=== PATIENT | male | born 1980 | race African-American/Black ===

== ENCOUNTER 2022-09-30 20:24 | Emergency (ER) | payer OTHER, SELFPAY ==
[2022-09-30 20:27] VITALS: BP 119/81; PULSE 73; RESP 18; TEMP 36.7; O2SAT 99; BMI 23.6
--- NOTE | 2022-09-30 20:29 | ED.ABDPAIN ---
HPI - Abdominal Pain General Chief Complaint: Nausea/Vomiting/Diarrhea <TIM Dailey - Last Filed: 09/30/22 20:32> Stated Complaint: Nausea/Vomiting/Diarrhea <TIM Dailey - Last Filed: 09/30/22 20:32> Time Seen by Provider: 09/30/22 21:14 <TIM Dailey - Last Filed: 09/30/22 20:32> Source: patient <Anton Piedra MD - Last Filed: 09/30/22 22:06> Mode of arrival: ambulatory <Anton Piedra MD - Last Filed: 09/30/22 22:06> Limitations: no limitations <Anton Piedra MD - Last Filed: 09/30/22 22:06> History of Present Illness HPI narrative: Patient with nausea diarrhea headache feeling weak poor appetite for last 2 days also noticed urine dark in color patient diagnosed with hepatitis-C planned to have treatment started next month no significant abdominal pain had only nausea today and vomited only 1 time no nausea at this time no upper respiratory symptoms <Anton Piedra MD - Last Filed: 09/30/22 22:06> Related Data Home Medications: Previous Rx's Medication Instructions Recorded ibuprofen 600 mg tablet 600 mg PO Q6H PRN fever or pain 09/30/22 #30 tabs <TIM Dailey - Last Filed: 09/30/22 20:32> Allergies/Adverse Reactions: Allergies Allergy/AdvReac Type Severity Reaction Status Date / Time No Known Allergies Allergy Verified 09/30/22 20:29 <TIM Dailey - Last Filed: 09/30/22 20:32> Review of Systems Review of Systems Yes all other systems are reviewed and are negative <Anton Piedra MD - Last Filed: 09/30/22 22:06> COUNT INCLUDES THE [facility] Social History Social History: Social History Advance Directives: No Advance Directives Information Provided: No <TIM Dailey Last Filed: 09/30/22 20:32> Physical Exam ED Vital Signs: Vital Signs - 24 hr 09/30/22 20:27 Temperature 98.0 F Pulse Rate 73 Respiratory Rate 18 Blood Pressure 119/81 Pulse Oximetry 99 Oxygen Delivery Method Room Air BMI result Body Mass Index 23.6 <TIM Dailey - Last Filed: 09/30/22 20:32> Vital Signs - 24 hr 09/30/22 20:27 Temperature 98.0 F Pulse Rate 73 Respiratory Rate 18 Blood Pressure 119/81 Pulse Oximetry 99 Oxygen Delivery Method Room Air BMI result Body Mass Index 23.6 <Anton Piedra MD - Last Filed: 09/30/22 22:06> Appearance: Alert. Oriented X3. No acute distress. Eyes: PERRLA, No Nystagmus ENT: Pharynx normal. Oral Mucosa moist Neck: Normal inspection. Neck supple. CVS: Normal heart rate and rhythm. Pulses normal. Respiratory: No respiratory distress. Equal air entry bilateral, no wheezing/rales/rhonchi Abdomen: Soft and nontender. Bowel sounds are present, no mass palpable, no CVA tenderness Skin: Skin warm and dry. Normal skin color. Normal skin turgor. Extremities: No lower extremity edema. No calf tenderness Neuro: Oriented X 3. No motor deficit. No sensory deficit.No cerebellar signs , cranial nerves II-XII intact <Anton Piedra MD - Last Filed: 09/30/22 22:06> Course Course Course Narrative: HYUN-20:30pm - 42yoM who is French-speaking presenting to the ED c c/o of headaches, N/V/D that started today. Reports that he feels dehydrated. Reports his urine is darker almost orange in color. 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 Plan: Will order labs, UA, COVID/RSV/flu swab. Patient will then be sent to the waiting room for further evaluation treatment to the main ER. <TIM Dailey - Last Filed: 09/30/22 20:32> Medical Decision Making Medical Decision Making [facility] Narrative: Patient hepatitis-C multiple complaints no significant abdominal pain bilirubin levels normal patient planned to get the hepatitis C treatment next month will discharge patient home <Anton Piedra MD - Last Filed: 09/30/22 22:06> Lab Data [facility] Lab Attestation statement: I reviewed the patient's lab results. <Anton Piedra MD - Last Filed: 12/15/22 22:06> Result Diagrams: : 12/15/22 20:42 09/30/22 20:42 <TIM Dailey - Last Filed: 09/30/22 20:32> Labs: Lab Results 09/30/22 09/30/22 09/30/22 Range/Units 20:42 20:42 20:42 WBC 7.9 (4.8-10.8) X10*3/uL RBC 5.34 (4.60-5.80) X10*6/uL Hgb 14.6 (14.0-18.0) g/dl Hct 43.0 (42.0-52.0) % MCV 80.5 (80.0-98.0) fL MCH 27.3 (27.0-33.0) pg MCHC 34.0 (31.0-36.0) g/dl RDW 13.9 (11.0-16.0) % Plt Count 185 (160-400) X10*3/uL MPV 11.3 (9.4-12.4) fL Immature Gran % (Auto) 0.3 (0.0-0.4) % Neut % (Auto) 67.1 (45-73) % Lymph % (Auto) 24.5 (20-40) % [place] % (Auto) 7.2 (2-11) % Eos % (Auto) 0.6 (0-4) % Baso % (Auto) 0.3 (0-2) % Lymph # (Auto) 1.9 (1.2-4.9) X10*3/uL [place] # (Auto) 0.6 (0.1-1.2) X10*3/uL Eos # (Auto) 0.1 (0.0-0.4) X10*3/uL Baso # (Auto) 0.0 (0.0-0.2) X10*3/uL Abs Immat Gran (auto) 0.02 (0.00-0.03) X10*3/uL Absolute Neuts (auto) 5.3 (2.0-8.3) x10*3/uL Absolute Nucleated RBC 0.000 (0.0-0.012) X10*3/uL Nucleated RBC % (auto) 0.0 (0.0-0.2) /100WBC PT (10.0-13.1) SEC INR (0.9-1.1) Sodium 139 (135-145) mmol/L Potassium 3.9 (3.3-5.1) mmol/L Chloride 101 (96-108) mmol/L Carbon Dioxide 31 H (22-29) mmol/L Anion Gap 11 L (12-20) BUN 18 H (9-16) mg/dL Creatinine 0.85 (0.5-1.4) mg/dL Estim Creat Clear Calc 115.5 Estimated GFR > 60 Random Glucose 83 (60-115) mg/dL Calcium 9.7 (8.4-10.2) mg/dL Magnesium 1.7 (1.6-2.6) mg/dL Total Bilirubin 0.9 (0.0-1.0) mg/dL AST 102 H (5-37) U/L ALT 170 H (0-40) U/L Alkaline Phosphatase 103 (39-117) U/L Total Protein 8.1 H (6.5-8.0) g/dL Albumin 4.6 (3.5-5.0) g/dL Urine Color Urine Appearance Urine pH (5.0-9.0) Ur Specific [place] (1.005-1.025) Urine Protein (Neg-Trace) mg/dL Urine Glucose (UA) (Negative) mg/dL Urine Ketones (Negative) mg/dL Urine Blood (Negative) Urine Nitrite (Negative) Ur Leukocyte Esterase (Negative) Urine Opiates Screen (Not Detect) Urine Fentanyl Screen (Not Detect) Ur Barbiturates Screen (Not Detect) Ur Phencyclidine Scrn (Not Detect) Ur Amphetamines Screen (Not Detect) U Benzodiazepines Scrn (Not Detect) Urine Cocaine Screen (Not Detect) U Marijuana (THC) Screen (Not Detect) Ethyl Alcohol mg/dL Influenza Type A (PCR) NEGATIVE (Negative) Influenza Type B (PCR) NEGATIVE (Negative) RSV RNA Qual (PCR) NEGATIVE (Negative) SARS-CoV-2 RNA (RT-PCR) NEGATIVE (Negative) 09/30/22 09/30/22 09/30/22 Range/Units 20:42 20:42 21:27 WBC (4.8-10.8) X10*3/uL RBC (4.60-5.80) X10*6/uL Hgb (14.0-18.0) g/dl Hct (42.0-52.0) % MCV (80.0-98.0) fL MCH (27.0-33.0) pg MCHC (31.0-36.0) g/dl RDW (11.0-16.0) % Plt Count (160-400) X10*3/uL MPV (9.4-12.4) fL Immature Gran % (Auto) (0.0-0.4) % Neut % (Auto) (45-73) % Lymph % (Auto) (20-40) % [place] % (Auto) (2-11) % Eos % (Auto) (0-4) % Baso % (Auto) (0-2) % Lymph # (Auto) (1.2-4.9) X10*3/uL [place] # (Auto) (0.1-1.2) X10*3/uL Eos # (Auto) (0.0-0.4) X10*3/uL Baso # (Auto) (0.0-0.2) X10*3/uL Abs Immat Gran (auto) (0.00-0.03) X10*3/uL Absolute Neuts (auto) (2.0-8.3) x10*3/uL Absolute Nucleated RBC (0.0-0.012) X10*3/uL Nucleated RBC % (auto) (0.0-0.2) /100WBC PT 11.9 (10.0-13.1) SEC INR 1.0 (0.9-1.1) Sodium (135-145) mmol/L Potassium (3.3-5.1) mmol/L Chloride (96-108) mmol/L Carbon Dioxide (22-29) mmol/L Anion Gap (12-20) BUN (9-16) mg/dL Creatinine (0.5-1.4) mg/dL Estim Creat Clear Calc Estimated GFR Random Glucose (60-115) mg/dL Calcium (8.4-10.2) mg/dL Magnesium (1.6-2.6) mg/dL Total Bilirubin (0.0-1.0) mg/dL AST (5-37) U/L ALT (0-40) U/L Alkaline Phosphatase (39-117) U/L Total Protein (6.5-8.0) g/dL Albumin (3.5-5.0) g/dL Urine Color Urine Appearance Urine pH (5.0-9.0) Ur Specific [place] (1.005-1.025) Urine Protein (Neg-Trace) mg/dL Urine Glucose (UA) (Negative) mg/dL Urine Ketones (Negative) mg/dL Urine Blood (Negative) Urine Nitrite (Negative) Ur Leukocyte Esterase (Negative) Urine Opiates Screen POSITIVE H (Not Detect) Urine Fentanyl Screen POSITIVE H (Not Detect) Ur Barbiturates Screen Not Detected (Not Detect) Ur Phencyclidine Scrn Not Detected (Not Detect) Ur Amphetamines Screen Not Detected (Not Detect) U Benzodiazepines Scrn Not Detected (Not Detect) Urine Cocaine Screen POSITIVE H (Not Detect) U Marijuana (THC) Screen POSITIVE H (Not Detect) Ethyl Alcohol < 10 mg/dL Influenza Type A (PCR) (Negative) Influenza Type B (PCR) (Negative) RSV RNA Qual (PCR) (Negative) SARS-CoV-2 RNA (RT-PCR) (Negative) 09/30/22 Range/Units 21:27 WBC (4.8-10.8) X10*3/uL RBC (4.60-5.80) X10*6/uL Hgb (14.0-18.0) g/dl Hct (42.0-52.0) % MCV (80.0-98.0) fL MCH (27.0-33.0) pg MCHC (31.0-36.0) g/dl RDW (11.0-16.0) % Plt Count (160-400) X10*3/uL MPV (9.4-12.4) fL Immature Gran % (Auto) (0.0-0.4) % Neut % (Auto) (45-73) % Lymph % (Auto) (20-40) % [place] % (Auto) (2-11) % Eos % (Auto) (0-4) % Baso % (Auto) (0-2) % Lymph # (Auto) (1.2-4.9) X10*3/uL [place] # (Auto) (0.1-1.2) X10*3/uL Eos # (Auto) (0.0-0.4) X10*3/uL Baso # (Auto) (0.0-0.2) X10*3/uL Abs Immat Gran (auto) (0.00-0.03) X10*3/uL Absolute Neuts (auto) (2.0-8.3) x10*3/uL Absolute Nucleated RBC (0.0-0.012) X10*3/uL Nucleated RBC % (auto) (0.0-0.2) /100WBC PT (10.0-13.1) SEC INR (0.9-1.1) Sodium (135-145) mmol/L Potassium (3.3-5.1) mmol/L Chloride (96-108) mmol/L Carbon Dioxide (22-29) mmol/L Anion Gap (12-20) BUN (9-16) mg/dL Creatinine (0.5-1.4) mg/dL Estim Creat Clear Calc Estimated GFR Random Glucose (60-115) mg/dL Calcium (8.4-10.2) mg/dL Magnesium (1.6-2.6) mg/dL Total Bilirubin (0.0-1.0) mg/dL AST (5-37) U/L ALT (0-40) U/L Alkaline Phosphatase (39-117) U/L Total Protein (6.5-8.0) g/dL Albumin (3.5-5.0) g/dL Urine Color Dark Yellow Urine Appearance Clear Urine pH 5.5 (5.0-9.0) Ur Specific [place] >= 1.030 H (1.005-1.025) Urine Protein Trace (Neg-Trace) mg/dL Urine Glucose (UA) Negative (Negative) mg/dL Urine Ketones Trace (Negative) mg/dL Urine Blood Negative (Negative) Urine Nitrite Negative (Negative) Ur Leukocyte Esterase Negative (Negative) Urine Opiates Screen (Not Detect) Urine Fentanyl Screen (Not Detect) Ur Barbiturates Screen (Not Detect) Ur Phencyclidine Scrn (Not Detect) Ur Amphetamines Screen (Not Detect) U Benzodiazepines Scrn (Not Detect) Urine Cocaine Screen (Not Detect) U Marijuana (THC) Screen (Not Detect) Ethyl Alcohol mg/dL Influenza Type A (PCR) (Negative) Influenza Type B (PCR) (Negative) RSV RNA Qual (PCR) (Negative) SARS-CoV-2 RNA (RT-PCR) (Negative) <TIM Dailey - Last Filed: 09/30/22 20:32> Lab Results 09/30/22 09/30/22 09/30/22 Range/Units 20:42 20:42 20:42 WBC 7.9 (4.8-10.8) X10*3/uL RBC 5.34 (4.60-5.80) X10*6/uL Hgb 14.6 (14.0-18.0) g/dl Hct 43.0 (42.0-52.0) % MCV 80.5 (80.0-98.0) fL MCH 27.3 (27.0-33.0) pg MCHC 34.0 (31.0-36.0) g/dl RDW 13.9 (11.0-16.0) % Plt Count 185 (160-400) X10*3/uL MPV 11.3 (9.4-12.4) fL Immature Gran % (Auto) 0.3 (0.0-0.4) % Neut % (Auto) 67.1 (45-73) % Lymph % (Auto) 24.5 (20-40) % [place] % (Auto) 7.2 (2-11) % Eos % (Auto) 0.6 (0-4) % Baso % (Auto) 0.3 (0-2) % Lymph # (Auto) 1.9 (1.2-4.9) X10*3/uL [place] # (Auto) 0.6 (0.1-1.2) X10*3/uL Eos # (Auto) 0.1 (0.0-0.4) X10*3/uL Baso # (Auto) 0.0 (0.0-0.2) X10*3/uL Abs Immat Gran (auto) 0.02 (0.00-0.03) X10*3/uL Absolute Neuts (auto) 5.3 (2.0-8.3) x10*3/uL Absolute Nucleated RBC 0.000 (0.0-0.012) X10*3/uL Nucleated RBC % (auto) 0.0 (0.0-0.2) /100WBC PT (10.0-13.1) SEC INR (0.9-1.1) Sodium 139 (135-145) mmol/L Potassium 3.9 (3.3-5.1) mmol/L Chloride 101 (96-108) mmol/L Carbon Dioxide 31 H (22-29) mmol/L Anion Gap 11 L (12-20) BUN 18 H (9-16) mg/dL Creatinine 0.85 (0.5-1.4) mg/dL Estim Creat Clear Calc 115.5 Estimated GFR > 60 Random Glucose 83 (60-115) mg/dL Calcium 9.7 (8.4-10.2) mg/dL Magnesium 1.7 (1.6-2.6) mg/dL Total Bilirubin 0.9 (0.0-1.0) mg/dL AST 102 H (5-37) U/L ALT 170 H (0-40) U/L Alkaline Phosphatase 103 (39-117) U/L Total Protein 8.1 H (6.5-8.0) g/dL Albumin 4.6 (3.5-5.0) g/dL Urine Color Urine Appearance Urine pH (5.0-9.0) Ur Specific [place] (1.005-1.025) Urine Protein (Neg-Trace) mg/dL Urine Glucose (UA) (Negative) mg/dL Urine Ketones (Negative) mg/dL Urine Blood (Negative) Urine Nitrite (Negative) Ur Leukocyte Esterase (Negative) Urine Opiates Screen (Not Detect) Urine Fentanyl Screen (Not Detect) Ur Barbiturates Screen (Not Detect) Ur Phencyclidine Scrn (Not Detect) Ur Amphetamines Screen (Not Detect) U Benzodiazepines Scrn (Not Detect) Urine Cocaine Screen (Not Detect) U Marijuana (THC) Screen (Not Detect) Ethyl Alcohol mg/dL Influenza Type A (PCR) NEGATIVE (Negative) Influenza Type B (PCR) NEGATIVE (Negative) RSV RNA Qual (PCR) NEGATIVE (Negative) SARS-CoV-2 RNA (RT-PCR) NEGATIVE (Negative) 09/30/22 09/30/22 09/30/22 Range/Units 20:42 20:42 21:27 WBC (4.8-10.8) X10*3/uL RBC (4.60-5.80) X10*6/uL Hgb (14.0-18.0) g/dl Hct (42.0-52.0) % MCV (80.0-98.0) fL MCH (27.0-33.0) pg MCHC (31.0-36.0) g/dl RDW (11.0-16.0) % Plt Count (160-400) X10*3/uL MPV (9.4-12.4) fL Immature Gran % (Auto) (0.0-0.4) % Neut % (Auto) (45-73) % Lymph % (Auto) (20-40) % [place] % (Auto) (2-11) % Eos % (Auto) (0-4) % Baso % (Auto) (0-2) % Lymph # (Auto) (1.2-4.9) X10*3/uL [place] # (Auto) (0.1-1.2) X10*3/uL Eos # (Auto) (0.0-0.4) X10*3/uL Baso # (Auto) (0.0-0.2) X10*3/uL Abs Immat Gran (auto) (0.00-0.03) X10*3/uL Absolute Neuts (auto) (2.0-8.3) x10*3/uL Absolute Nucleated RBC (0.0-0.012) X10*3/uL Nucleated RBC % (auto) (0.0-0.2) /100WBC PT 11.9 (10.0-13.1) SEC INR 1.0 (0.9-1.1) Sodium (135-145) mmol/L Potassium (3.3-5.1) mmol/L Chloride (96-108) mmol/L Carbon Dioxide (22-29) mmol/L Anion Gap (12-20) BUN (9-16) mg/dL Creatinine (0.5-1.4) mg/dL Estim Creat Clear Calc Estimated GFR Random Glucose (60-115) mg/dL Calcium (8.4-10.2) mg/dL Magnesium (1.6-2.6) mg/dL Total Bilirubin (0.0-1.0) mg/dL AST (5-37) U/L ALT (0-40) U/L Alkaline Phosphatase (39-117) U/L Total Protein (6.5-8.0) g/dL Albumin (3.5-5.0) g/dL Urine Color Urine Appearance Urine pH (5.0-9.0) Ur Specific [place] (1.005-1.025) Urine Protein (Neg-Trace) mg/dL Urine Glucose (UA) (Negative) mg/dL Urine Ketones (Negative) mg/dL Urine Blood (Negative) Urine Nitrite (Negative) Ur Leukocyte Esterase (Negative) Urine Opiates Screen POSITIVE H (Not Detect) Urine Fentanyl Screen POSITIVE H (Not Detect) Ur Barbiturates Screen Not Detected (Not Detect) Ur Phencyclidine Scrn Not Detected (Not Detect) Ur Amphetamines Screen Not Detected (Not Detect) U Benzodiazepines Scrn Not Detected (Not Detect) Urine Cocaine Screen POSITIVE H (Not Detect) U Marijuana (THC) Screen POSITIVE H (Not Detect) Ethyl Alcohol < 10 mg/dL Influenza Type A (PCR) (Negative) Influenza Type B (PCR) (Negative) RSV RNA Qual (PCR) (Negative) SARS-CoV-2 RNA (RT-PCR) (Negative) 09/30/22 Range/Units 21:27 WBC (4.8-10.8) X10*3/uL RBC (4.60-5.80) X10*6/uL Hgb (14.0-18.0) g/dl Hct (42.0-52.0) % MCV (80.0-98.0) fL MCH (27.0-33.0) pg MCHC (31.0-36.0) g/dl RDW (11.0-16.0) % Plt Count (160-400) X10*3/uL MPV (9.4-12.4) fL Immature Gran % (Auto) (0.0-0.4) % Neut % (Auto) (45-73) % Lymph % (Auto) (20-40) % [place] % (Auto) (2-11) % Eos % (Auto) (0-4) % Baso % (Auto) (0-2) % Lymph # (Auto) (1.2-4.9) X10*3/uL [place] # (Auto) (0.1-1.2) X10*3/uL Eos # (Auto) (0.0-0.4) X10*3/uL Baso # (Auto) (0.0-0.2) X10*3/uL Abs Immat Gran (auto) (0.00-0.03) X10*3/uL Absolute Neuts (auto) (2.0-8.3) x10*3/uL Absolute Nucleated RBC (0.0-0.012) X10*3/uL Nucleated RBC % (auto) (0.0-0.2) /100WBC PT (10.0-13.1) SEC INR (0.9-1.1) Sodium (135-145) mmol/L Potassium (3.3-5.1) mmol/L Chloride (96-108) mmol/L Carbon Dioxide (22-29) mmol/L Anion Gap (12-20) BUN (9-16) mg/dL Creatinine (0.5-1.4) mg/dL Estim Creat Clear Calc Estimated GFR Random Glucose (60-115) mg/dL Calcium (8.4-10.2) mg/dL Magnesium (1.6-2.6) mg/dL Total Bilirubin (0.0-1.0) mg/dL AST (5-37) U/L ALT (0-40) U/L Alkaline Phosphatase (39-117) U/L Total Protein (6.5-8.0) g/dL Albumin (3.5-5.0) g/dL Urine Color Dark Yellow Urine Appearance Clear Urine pH 5.5 (5.0-9.0) Ur Specific [place] >= 1.030 H (1.005-1.025) Urine Protein Trace (Neg-Trace) mg/dL Urine Glucose (UA) Negative (Negative) mg/dL Urine Ketones Trace (Negative) mg/dL Urine Blood Negative (Negative) Urine Nitrite Negative (Negative) Ur Leukocyte Esterase Negative (Negative) Urine Opiates Screen (Not Detect) Urine Fentanyl Screen (Not Detect) Ur Barbiturates Screen (Not Detect) Ur Phencyclidine Scrn (Not Detect) Ur Amphetamines Screen (Not Detect) U Benzodiazepines Scrn (Not Detect) Urine Cocaine Screen (Not Detect) U Marijuana (THC) Screen (Not Detect) Ethyl Alcohol mg/dL Influenza Type A (PCR) (Negative) Influenza Type B (PCR) (Negative) RSV RNA Qual (PCR) (Negative) SARS-CoV-2 RNA (RT-PCR) (Negative) <Anton Piedra MD - Last Filed: 09/30/22 22:06> Medications Administered Discontinued Medications Generic Name Dose Route Start Last Admin Trade Name Freq PRN Reason Stop Dose Admin Ibuprofen 600 mg 09/30/22 21:44 09/30/22 21:57 Ibuprofen 600 Mg Tablet PO 09/30/22 21:45 600 mg ONCE ONE Administration <TIM Dailey - Last Filed: 09/30/22 20:32> Medications Administered Discontinued Medications Generic Name Dose Route Start Last Admin Trade Name Freq PRN Reason Stop Dose Admin Ibuprofen 600 mg 09/30/22 21:44 09/30/22 21:57 Ibuprofen 600 Mg Tablet PO 09/30/22 21:45 600 mg ONCE ONE Administration <Anton Piedra MD - Last Filed: 09/30/22 22:06> Discharge Plan Discharge Clinical Impression: Hepatitis C <TIM Dailey - Last Filed: 09/30/22 20:32> Patient Disposition: Home, Self-Care <TIM Dailey - Last Filed: 09/30/22 20:32> Instructions: Hepatitis C (ED) <TIM Dailey - Last Filed: 09/30/22 20:32> Additional Instructions: Drink plenty of fluids 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
--- OUTSIDE RECORDS SUMMARY | 2022-09-30 20:50 | XMS_ITS | Continuity of Care Document ---
:1980 Author Organization [facility] Address [address] [place] [address]- Care Team Providers Name Role Phone Diana Gallardo DO Primary Care Physician Encounter [facility] [place](s): 07/24/21 - 09/26/21 [facility] [address] [place] [id number] Attending Physician: Raimundo PERDOMO, Nissa Sullivan Admitting Physician: Raimundo PERDOMO, Nissa Sullivan Allergies, Adverse Reactions, Alerts Substance Reaction Severity Status NKA Active Immunizations Given and Recorded Vaccine Date Status Refusal Reason SARS-CoV-2 (COVID-19) mRNA BNT-162b2 vac 03/14/21 Recorde d SARS-CoV-2 (COVID-19) mRNA BNT-162b2 vac 02/21/21 Recorde d pneumococcal 23-valent vaccine 12/10/19 Given tetanus/diphtheria/pertussis, acel(Tdap) 12/10/19 Given Medications hydrOXYzine hydrochloride 25 mg oral tablet 1 tablet = 25 mg, By Mouth, 3 times a day, PRN for anxiety, # 40 tablet, 3 Refills, Maintenance, 07/24/21 11:45:00 EDT, Tablet, [facility], Partial fill upon patient request if the prescription is for a schedule II opioid drug., 173, cm, .. Start Date: 07/24/21 Status: Orderedsertraline 50 mg oral tablet 1 tablet = 50 mg, By Mouth, Daily, # 30 tablet, 3 Refills, Maintenance, 09/02/21 16:48:00 EST, Tablet, [facility], Partial fill upon patient request if the prescription is for a schedule II opioid drug., 173, cm, 09/02/21 14:57:00 EST, Height Start Date: 11/17/21 Status: Ordered Problem List Condition Effective Dates Status Health Status Informant Tobacco dependence due to Active cigarettes(Confirmed) Social History Social History Type Response Smoking Status 5-9 cigarettes (between 1/4 to 1/2 pack)/day in last 30 days entered on: 12/10/19 Sex
--- OUTSIDE RECORDS SUMMARY | 2022-09-30 20:50 | XMS_ITS | Continuity of Care Document ---
:1980 Author Organization [facility] Address [address] [place] [id number]- Care Team Providers Name Role Phone Diana Gallardo DO Primary Care Physician Encounter [facility] [place] [id number] Date(s): 08/10/21 - 09/09/21 [facility] [address] [place] [id number]- Attending Physician: Chevy Hoffmann Admitting Physician: Chevy Hoffmann Referring Physician: Chevy Hoffmann Allergies, Adverse Reactions, Alerts Substance Reaction Severity [...] 3 Refills, Maintenance, 07/24/21 11:45:00 EDT, Tablet, [facility], Partial fill upon patient request if the prescription is for a schedule II opioid drug., 173, cm, .. Start Date: 07/24/21 Status: Orderedsertraline 50 mg oral tablet 1 tablet = 50 mg, By Mouth, Daily, # 30 tablet, 3 Refills, Maintenance, 09/02/21 16:48:00 EST, Tablet, [facility], Partial fill upon patient request if the prescription is for a schedule II opioid drug., 173, cm, 09/02/21 14:57:00 EST, Height Start Date: 09/02/21 Status: Ordered Problem List Condition Effective Dates Status Health Status Informant Tobacco dependence due to Active cigarettes(Confirmed) Social History Social History Type Response Smoking Status 5-9 cigarettes (between 1/4 to 1/2 pack)/day in last 30 days entered on: 12/10/19 Sex
--- OUTSIDE RECORDS SUMMARY | 2022-09-30 20:50 | XMS_ITS | Continuity of Care Document ---
:1980 Author Organization [facility] Address [address] [place] [address]- Care Team Providers Name Role Phone Not on Staff, PCP Primary Care Physician Unavailable Encounter [facility] Date(s): 11/06/19 - 11/16/19 [facility] [address] [place] [id number] [facility] Attending Physician: Chevy Hoffmann Admitting Physician: Chevy Hoffmann Referring Physician: Chevy Hoffmann
--- OUTSIDE RECORDS SUMMARY | 2022-09-30 20:50 | XMS_ITS | Continuity of Care Document ---
:1980 Author Organization [facility] Address [address] [place] [address]- Care Team Providers Name Role Phone Not on Staff, PCP Primary Care Physician Unavailable Encounter [facility] Date(s): 10/01/19 - 10/11/19 [facility] [address] [place] [id number] [facility] Attending Physician: Chevy Hoffmann Admitting Physician: Chevy Hoffmann Referring Physician: Chevy Hoffmann
--- OUTSIDE RECORDS SUMMARY | 2022-09-30 20:50 | XMS_ITS | Continuity of Care Document ---
:1980 Author Organization [facility] Address [address] [place] [address]- Care Team Providers Name Role Phone Arlee Surya DALE Primary Care Physician Encounter [facility] Date(s): 12/10/19 - 01/27/20 [facility] [address] [place] [address]- [facility] Attending Physician: Glen Arrieta MD Admitting Physician: Glen Arrieta MD Allergies, Adverse Reactions, Alerts Substance Reaction Severity Status NKA Active Immunizations Given and Recorded Vaccine Date Status Refusal Reason pneumococcal 23-valent vaccine 12/10/19 Given tetanus/diphtheria/pertussis, acel(Tdap) 12/10/19 Given Problem List Condition Effective Dates Status Health Status Informant Tobacco dependence due to Active cigarettes(Confirmed) Social History Social History Type Response Smoking Status 5-9 cigarettes (between 1/4 to 1/2 pack)/day in last 30 days entered on: 12/10/19 Sex
--- OUTSIDE RECORDS SUMMARY | 2022-09-30 20:50 | XMS_ITS | Continuity of Care Document ---
:1980 Author Organization [facility] Address [address] [place] [address]- Care Team Providers Name Role Phone Diana Gallardo DO Primary Care Physician En[place] [facility] [place] Date(s): 09/07/21 - 11/13/21 [facility] [address] [place] [id number] Attending Physician: Not on Staff, Attending MD Allergies, Adverse Reactions, Alerts No Known Allergies Immunizations Given and Recorded Vaccine Date Status [...] 3 Refills, Maintenance, 07/24/21 11:45:00 EDT, Tablet, [facility], Partial fill upon patient request if the prescription is for a schedule II opioid drug., 173, cm, .. Start Date: 07/24/21 Status: Orderedsertraline 50 mg oral tablet 1 tablet = 50 mg, By Mouth, Daily, # 30 tablet, 3 Refills, Maintenance, 09/02/21 16:48:00 EST, Tablet, [facility], Partial fill upon patient request if [...]
--- OUTSIDE RECORDS SUMMARY | 2022-09-30 20:50 | XMS_ITS | Continuity of Care Document ---
:1980 Author Organization [facility] Address [address] [place] [phone]- Care Team Providers Name Role Phone Diana Gallardo DO Primary Care Physician [place] [facility] [place] 08/07/22 [facility] [address] [place] [phone]- Allergies, Adverse Reactions, Alerts No Known Allergies [...] 3 Refills, Maintenance, 07/24/21 11:45:00 EDT, Tablet, [facility], Partial fill upon patient request if the prescription is for a schedule II opioid drug., 173, cm, .. Start Date: 07/24/21 Status: Orderedsertraline 50 mg oral tablet 1 tablet = 50 mg, By Mouth, Daily, # 30 tablet, 3 Refills, Maintenance, 09/02/21 16:48:00 EST, Tablet, [facility], Partial fill upon patient request if the prescription is for a schedule II opioid drug., 173, cm, 09/02/21 14:57:00 EST, Height Start Date: 09/02/21 Status: Ordered Problem List Condition Confirmation Course Effective Dates Status Health Stat us Informant Substance use Confirmed Active disorder Tobacco dependence Confirmed Active due to cigarettes Social History Social History Type Response Smoking Status 5-9 cigarettes (between 1/4 to 1/2 pack)/day in last 30 days entered on: 12/10/19 Sex Patient Care team information PersonnelName: Diana Gallardo DO Address: Address: [address] [place] [address] [place] [address]-
--- OUTSIDE RECORDS SUMMARY | 2022-09-30 20:50 | XMS_ITS | Continuity of Care Document ---
:1980 Author Organization [facility] Address [address] [place] [address]- Care Team Providers Name Role Phone Surya Major DO Primary Care Physician [facility]counter [facility] Date(s): 12/28/19 - 01/07/20 [facility] [address] [place] [address]- [facility] Attending Physician: Chevy Hoffmann Admitting Physician: AdmChevy menezes Referring Physician: AdmtrChevy Allergies, Adverse Reactions, Alerts Substance Reaction Severity Status NKA Active Immunizations Given and Recorded Vaccine Date Status Refusal Reason pneumococcal 23-valent vaccine 12/10/19 Given tetanus/diphtheria/pertussis, acel(Tdap) 12/10/19 Given Medications clotrimazole 1% topical cream 1 application, Topically, 2 times a day, for 14 days, hands and feet, # 60 Gm, 2 Refills, Acute 01/21/20 11:10:00 EDT, 12/10/19 11:10:00 EST, [facility] in [facility], 1 application Topically 2 times a day,x14 days,Instr:sánchez... Start Date: 12/10/19 Stop Date: 01/21/20 Status: Ordered Problem List Condition Effective Dates Status Health Status Informant Tobacco dependence due to Active cigarettes(Confirmed) Social History Social History Type Response Smoking Status 5-9 cigarettes (between 1/4 to 1/2 pack)/day in last 30 days entered on: 12/10/19 Sex
--- OUTSIDE RECORDS SUMMARY | 2022-09-30 20:50 | XMS_ITS | Continuity of Care Document ---
:1980 Author Organization [facility] Address [address] [place] [address]- Care Team Providers Name Role Phone Diana Gallardo DO Primary Care Physician [place] [facility] [place]10/[place] - 09/16/[address] [id number] Attending Physician: Lavon Santos Admitting Physician: Lavon Santos Referring Physician: Lavon Santos Allergies, Adverse Reactions, Alerts Substance Reaction Severity [...] 3 Refills, Maintenance, 07/24/21 11:45:00 EDT, Tablet, [facility], Partial fill upon patient request if the prescription is for a schedule II opioid drug., 173, cm, .. Start Date: 07/24/21 Status: Orderedsertraline 50 mg oral tablet 1 tablet = 50 mg, By Mouth, Daily, # 30 tablet, 3 Refills, Maintenance, 09/02/21 16:48:00 EST, Tablet, [facility], Partial fill upon patient request if [...]
--- OUTSIDE RECORDS SUMMARY | 2022-09-30 20:50 | XMS_ITS | Continuity of Care Document ---
:1980 Author Organization [facility] Address [address] [place] [address]- Care Team Providers Name Role Phone Diana Gallardo DO Primary Care Physician [place] [facility] [place] 01/30/21 - 05/30/21 [facility] [address] [place], [place] [address] Attending Physician: Sebastian Higgins MD Admitting Physician: Sebastian Higgins MD Referring Physician: Antonio Moore MD Allergies, Adverse Reactions, Alerts Substance Reaction [...]
--- OUTSIDE RECORDS SUMMARY | 2022-09-30 20:50 | XMS_ITS | Continuity of Care Document ---
:1980 Author Organization [facility] Adult [facility] Address [address] [place] [address]- Care Team Providers Name Role Phone Diana Gallardo DO Primary Care Physician [place] [facility] [place] 04[place]21/22 [facility] [address] [place] [id number] Allergies, Adverse Reactions, Alerts No Known Allergies [...] 3 Refills, Maintenance, 07/24/21 11:45:00 EDT, Tablet, [facility], Partial fill upon patient request if the prescription is for a schedule II opioid drug., 173, cm, . Start Date: 07/24/21 Status: Orderedsertraline 50 mg oral tablet 1 tablet = 50 mg, By Mouth, Daily, # 30 tablet, 3 Refills, Maintenance, 09/02/21 16:48:00 EST, Tablet, [facility], Partial fill upon patient request if the prescription is for a schedule II opioid drug., 173, cm, 09/02/21 14:57:00 EST, Height Start Date: 09/02/21 Status: Ordered Problem List Condition Effective Dates Status Health Status Informant Tobacco dependence due to Active cigarettes(Confirmed) Social History Social History Type Response Smoking Status 5-9 cigarettes (between 10/20 to 1/2 pack)/day in last 30 days entered on: 12/10/19 Sex
--- OUTSIDE RECORDS SUMMARY | 2022-09-30 20:50 | XMS_ITS | Continuity of Care Document ---
:1980 Author Organization [facility] Adult [facility] Address [address] [place] [address]- Care Team Providers Name Role Phone Not on Staff, PCP Primary Care Physician Unavailable [facility]counter [facility] Date(s): 09/24/19 - 10/31/19 [facility] [address] [place] [phone]- [facility] Attending Physician: Glen Arrieta MD Admitting Physician: Glen Arrieta MD
--- OUTSIDE RECORDS SUMMARY | 2022-09-30 20:50 | XMS_ITS | Continuity of Care Document ---
:1980 Author Organization [facility] Adult [facility] Address [address] [place] [address]- Care Team Providers Name Role Phone Diana Gallardo DO Primary Care Physician En[place] [facility] [place] 03/26/22 - 04/25/22 [facility] [address] [place] [id number] Attending Physician: Chevy Hoffmann Admitting Physician: Chevy Hoffmann Referring Physician: AdmtrChevy Allergies, Adverse Reactions, Alerts No Known Allergies [...] 3 Refills, Maintenance, 07/24/21 11:45:00 EDT, Tablet, [facility], Partial fill upon patient request if the prescription is for a schedule II opioid drug., 173, cm, .. Start Date: 07/24/21 Status: Orderedsertraline 50 mg oral tablet 1 tablet = 50 mg, By Mouth, Daily, # 30 tablet, 3 Refills, Maintenance, 09/02/21 16:48:00 EST, Tablet, [facility], Partial fill upon patient request if [...]
--- OUTSIDE RECORDS SUMMARY | 2022-09-30 20:50 | XMS_ITS | Continuity of Care Document ---
:1980 Author Organization [facility] Address [address] [place] [address]- Care Team Providers Name Role Phone Surya Major DO Primary Care Physician Encounter [facility] Date(s): 02/04/20 - 02/11/20 [facility] Adult [facility] [address] [place] [phone]- [facility] Attending Physician: Citlaly Velasco MD Allergies, Adverse Reactions, Alerts Substance Reaction [...]
--- OUTSIDE RECORDS SUMMARY | 2022-09-30 20:50 | XMS_ITS | Continuity of Care Document ---
:1980 Author Organization [facility] Adult [facility] Address [address] [place] [address]- Care Team Providers Name Role Phone Diana Gallardo DO Primary Care Physician Encounter [facility] [place] Date(s): 02/23/22 - 03/25/22 [facility] Adult [facility] [address] [place] [id number] Allergies, Adverse Reactions, Alerts No Known Allergies [...] 3 Refills, Maintenance, 07/24/21 11:45:00 EDT, Tablet, [facility], Partial fill upon patient request if the prescription is for a schedule II opioid drug., 173, cm, . Start Date: 07/24/21 Status: Orderedsertraline 50 mg oral tablet 1 tablet = 50 mg, By Mouth, Daily, # 30 tablet, 3 Refills, Maintenance, 09/02/21 16:48:00 EST, Tablet, [facility], Partial fill upon patient request if [...]
--- OUTSIDE RECORDS SUMMARY | 2022-09-30 20:50 | XMS_ITS | Continuity of Care Document ---
:1980 Author Organization [facility] Address [address] [place] [address]- Care Team Providers Name Role Phone Surya Major DO Primary Care Physician [place] [facility] [place]s): 02/04/20 - 05/08/20 [facility] [address] [place] [phone]- [facility] Attending Physician: Not on Staff, Attending MD Allergies, Adverse Reactions, Alerts Substance Reaction [...]
--- OUTSIDE RECORDS SUMMARY | 2022-09-30 20:50 | XMS_ITS | Continuity of Care Document ---
:1980 Author Organization [facility] Adult [facility] Address [address] [place] [address]- Care Team Providers Name Role Phone Diana Gallardo DO Primary Care Physician Encounter [facility] Date(s): 06/30/22 - 07/30/22 [facility] [address] [place] [email or web address] Attending Physician: Chevy Hoffmann Admitting Physician: AdmtrChevy Referring Physician: Admtr, Ar8 Allergies, Adverse Reactions, Alerts No Known Allergies [...] 3 Refills, Maintenance, 07/24/21 11:45:00 EDT, Tablet, [facility], Partial fill upon patient request if the prescription is for a schedule II opioid drug., 173, cm, .. Start Date: 07/24/21 Status: Orderedsertraline 50 mg oral tablet 1 tablet = 50 mg, By Mouth, Daily, # 30 tablet, 3 Refills, Maintenance, 09/02/21 16:48:00 EST, Tablet, [facility], Partial fill upon patient request if [...] information PersonnelName: Diana Gallardo DO Address: Address: [address] [place] [address]
--- OUTSIDE RECORDS SUMMARY | 2022-09-30 20:50 | XMS_ITS | Continuity of Care Document ---
:1980 Author Organization [facility] Address [address] [place] [address]- Care Team Providers Name Role Phone Diana Gallardo DO Primary Care Physician [place] [facility] [place] 10/14/21 - 11/13/21 [facility] [address] [place] [id number] Attending Physician: Chevy Hoffmann Admitting Physician: Chevy [...] 3 Refills, Maintenance, 07/24/21 11:45:00 EDT, Tablet, [facility], Partial fill upon patient request if the prescription is for a schedule II opioid drug., 173, cm, .. Start Date: 07/24/21 Status: Orderedsertraline 50 mg oral tablet 1 tablet = 50 mg, By Mouth, Daily, # 30 tablet, 3 Refills, Maintenance, 09/02/21 16:48:00 EST, Tablet, [facility], Partial fill upon patient request if [...]
--- OUTSIDE RECORDS SUMMARY | 2022-09-30 20:50 | XMS_ITS | Continuity of Care Document ---
:1980 Author Organization [facility] Adult [facility] Address [address] [place] [address]- Care Team Providers Name Role Phone Not on Staff, PCP Primary Care Physician Unavailable [facility]counter [facility] Date(s): 10/22/19 - 12/06/19 [facility] [address] [place] [address] [facility] Attending Physician: Dre García MD Admitting Physician: Dre García MD
--- OUTSIDE RECORDS SUMMARY | 2022-09-30 20:50 | XMS_ITS | Continuity of Care Document ---
:1980 Author Organization [facility] Address [address] [place] [address]- Care Team Providers Name Role Phone Diana Gallardo DO Primary Care Physician En[place] [facility] [place](s): 07/14/22 - 08/13/22 [facility] [address] [place] [address]- Allergies, Adverse Reactions, Alerts No Known Allergies [...] 3 Refills, Maintenance, 07/24/21 11:45:00 EDT, Tablet, [facility], Partial fill upon patient request if the prescription is for a schedule II opioid drug., 173, cm, .. Start Date: 07/24/21 Status: Orderedsertraline 50 mg oral tablet 1 tablet = 50 mg, By Mouth, Daily, # 30 tablet, 3 Refills, Maintenance, 09/02/21 16:48:00 EST, Tablet, [facility], Partial fill upon patient request if [...] information PersonnelName: Diana Gallardo DO Address: Address: [address] [place] [address] [place] [address]-
--- OUTSIDE RECORDS SUMMARY | 2022-09-30 20:50 | XMS_ITS | Continuity of Care Document ---
:1980 Author Organization [facility] Address [address] [place] [address]- Care Team Providers Name Role Phone Sami Diana DALE Primary Care Physician [place] [facility] [place] 06/05/21 - 08/07/21 [facility] [address] [place] [address]- Attending Physician: Glen Arrieta MD Admitting Physician: [...] 3 Refills, Maintenance, 07/24/21 11:45:00 EDT, Tablet, [facility], Partial fill upon patient request if the prescription is for a schedule II opioid drug., 173, cm, . Start Date: 07/24/21 Status: Orderedsertraline 25 mg oral tablet 1 tablet = 25 mg, By Mouth, Daily, # 30 tablet, 6 Refills, Maintenance, 07/24/21 11:45:00 EDT, Tablet, [facility], Partial fill upon patient request if the prescription is for a schedule II opioid drug., 173, cm, 07/24/21 10:35:00 EDT, Height Start Date: 07/24/21 Status: Ordered Problem List Condition Effective Dates Status Health Status Informant Tobacco dependence due to Active cigarettes(Confirmed) Social History Social History Type Response Smoking Status 5-9 cigarettes (between 1/4 to 1/2 pack)/day in last 30 days entered on: 12/10/19 Sex
--- OUTSIDE RECORDS SUMMARY | 2022-09-30 20:50 | XMS_ITS | Continuity of Care Document ---
:1980 Author Organization [facility] Address [address] [place] [address]- Care Team Providers Name Role Phone Surya Major DO Primary Care Physician Encounter [facility] Date(s): 11/26/20 - 12/26/20 [facility] [address] [place], [place] [address] Attending Physician: Chevy Hoffmann Admitting [...]
--- OUTSIDE RECORDS SUMMARY | 2022-09-30 20:50 | XMS_ITS | Continuity of Care Document ---
:1980 Author Organization [facility] Adult [facility] Address [address] [place] [address]- Care Team Providers Name Role Phone Diana Gallardo DO Primary Care Physician [place] [facility] [place]): [place]/23/22 - 04/17/22 [facility] Adult [facility] [address] [place] [id number] Attending Physician: Not on Staff, Attending MD Referring Physician: Diana Gallardo DO Allergies, Adverse Reactions, Alerts No Known Allergies [...] 3 Refills, Maintenance, 07/24/21 11:45:00 EDT, Tablet, [facility], Partial fill upon patient request if the prescription is for a schedule II opioid drug., 173, cm, . Start Date: 07/24/21 Status: Orderedsertraline 50 mg oral tablet 1 tablet = 50 mg, By Mouth, Daily, # 30 tablet, 3 Refills, Maintenance, 09/02/21 16:48:00 EST, Tablet, [facility], Partial fill upon patient request if [...]
[2022-09-30 20:51] LABS: MANUAL DIFF FLAG NO
[2022-09-30 20:53] LABS: Basophils Percent Auto 0.3 % (0-2); Eosinophils Absolute Auto 0.1 X10*3/uL (0.0-0.4); Eosinophils Percent Auto 0.6 % (0-4); Hemoglobin 14.6 g/dl (14.0-18.0); Imm Gran Abs Auto 0.02 X10*3/uL (0.00-0.03); Imm Gran Pct Auto 0.3 % (0.0-0.4); Lymphocytes Absolute Auto 1.9 X10*3/uL (1.2-4.9); Lymphocytes Percent Auto 24.5 % (20-40); Mean Corpuscular Hemoglobin 27.3 pg (27.0-33.0); Mean Corpuscular Volume 80.5 fL (80.0-98.0); Mean Platelet Volume 11.3 fL (9.4-12.4); Monocytes Absolute Auto 0.6 X10*3/uL (0.1-1.2); Monocytes Percent Auto 7.2 % (2-11); Neutrophils Absolute Auto 5.3 x10*3/uL (2.0-8.3); Neutrophils Percent Auto 67.1 % (45-73); Platelet Count 185 X10*3/uL (160-400); Red Blood Count 5.34 X10*6/uL (4.60-5.80); Red Cell Distribution Width 13.9 % (11.0-16.0); White Blood Count 7.9 X10*3/uL (4.8-10.8)
[2022-09-30 20:58] LABS: Prothrombin Time 11.9 SEC (10.0-13.1)
[2022-09-30 21:06] LABS: Ethanol < 10 mg/dL
[2022-09-30 21:11] LABS: Alanine Aminotransferase 170 U/L (0-40); Albumin Level 4.6 g/dL (3.5-5.0); Alkaline Phosphatase 103 U/L (39-117); Anion Gap 11 (12-20); Aspartate Amino Transferase 102 U/L (5-37); Blood Urea Nitrogen 18 mg/dL (9-16); Calcium 9.7 mg/dL (8.4-10.2); Carbon Dioxide 31 mmol/L (22-29); Chloride 101 mmol/L (96-108); Creatinine Clr Calc Pharmacy 115.5; Estimated Glomerular Filt Rate > 60; Glucose Random 83 mg/dL (60-115); Magnesium 1.7 mg/dL (1.6-2.6); Potassium 3.9 mmol/L (3.3-5.1); Sodium 139 mmol/L (135-145); Total Protein 8.1 g/dL (6.5-8.0)
[2022-09-30 21:30] LABS: Influenza A PCR NEGATIVE (Negative); Influenza B PCR NEGATIVE (Negative); Resp Syncy Virus RNA Qual PCR NEGATIVE (Negative); SARS COV2 PCR INHOUSE NEGATIVE (Negative)
[2022-09-30 21:41] LABS: Appearance Urine Clear; Color Urine Dark Yellow; Glucose Urine UA Negative (Negative); Leukocyte Esterase Urine Negative (Negative); Nitrite Urine Negative (Negative); PH 5.5 (5.0-9.0); Specific Gravity - Urine >= 1.030 (1.005-1.025); Urine Blood Negative (Negative); Urine Ketones Trace mg/dL (Negative); Urine Protein Trace mg/dL (Neg-Trace)
[2022-09-30 21:43] LABS: Bilirubin Total 0.9 mg/dL (0.0-1.0)
[2022-09-30] MEDS: Ibuprofen 600 MG TABLET PO (21:57)
[2022-09-30 22:06] LABS: Amphetamine Screen Urine Not Detected (Not Detect); Barbiturates, Urine Not Detected (Not Detect); Benzodiazepines Screen Urine Not Detected (Not Detect); Cannabinoid Screen Urine POSITIVE (Not Detect); Cocaine Screen Urine POSITIVE (Not Detect); Fentanyl, urine POSITIVE (Not Detect); Opiate Screen Urine POSITIVE (Not Detect); Phencyclidine Screen Urine Not Detected (Not Detect)
== END 2022-09-30 22:20 | disposition home or self-care (01) ==
PROVIDERS: Physician Assistant Medical; Emergency Provider Internal Medicine
DX: B19.20 Unspecified viral hepatitis C without hepatic coma (principal); R11.2 Nausea with vomiting, unspecified; Z20.822 Contact with and (suspected) exposure to COVID-19; Z79.899 Other long term (current) drug therapy
CPT/HCPCS: 0241U; 36415; 80053; 80307; 81003; 82077; 83735; 85025; 85610; 99283

== ENCOUNTER 2022-10-11 07:45 | Emergency (ER) | payer OTHER, SELFPAY ==
[2022-10-11 07:55] VITALS: BP 144/83; PULSE 118; RESP 20; TEMP 36.7; O2SAT 100; BMI 23.6
--- NOTE | 2022-10-11 08:30 | ED.GENADULT ---
HPI - General Adult General Chief complaint: General Medical Stated complaint: Needs methadone dose Time Seen by Provider: 10/11/22 08:22 Source: patient Mode of arrival: ambulatory Limitations: no limitations History of Present Illness HPI narrative: 42-year-old male with on methadone takes 105 mg p.o. daily, because the holiday patient went to the clinic today and were closed, patient is feeling withdrawal symptoms and he is requesting his methadone dosage. Attempt to contact the clinic was unsuccessful because the holidays and the dosage could not be verified. Related Data Previous Rx's Medication Instructions Recorded ibuprofen 600 mg tablet 600 mg PO Q6H PRN fever or pain 09/30/22 #30 tabs Allergies Allergy/AdvReac Type Severity Reaction Status Date / Time No Known Allergies Allergy Verified 09/30/22 20:29 Review of Systems Review of Systems: All other systems are reviewed and are negative Constitutional: Reports as per HPI and Reports no additional constitutional complaints Eyes: Reports as per HPI and Reports no additional eye complaints Reports system reviewed and no additional complaints, except as documented Cardiovascular: Reports as per HPI and Reports no additional cardiovascular complaints Respiratory: Reports as per HPI and Reports no additional respiratory complaints Gastrointestinal: Reports as per HPI and Reports no additional gastrointestinal complaints Genitourinary: Reports no additional female genitourinary complaints Musculoskeletal: Reports no additional musculoskeletal complaints Skin/Breast: Reports system reviewed and no additional complaints, except as docu Psychiatric: Reports no additional psychiatric complaints Endocrine: Reports no additional endocrine complaints Hematologic/Lymphatic: Reports no additional hematologic/lymphatic complaints Allergic/Immunologic: Reports no additional allergic/immunologic complaints Reports system reviewed and no additional complaints, except as documented and Reports Abnormal speech present [facility] Social History Social History Advance Directives: No Advance Directives Information Provided: No Physical Exam ED Vital Signs: Vital Signs - 24 hr 10/11/22 07:55 Temperature 98.1 F Pulse Rate 118 H Respiratory Rate 20 Blood Pressure 144/83 H Pulse Oximetry 100 Oxygen Delivery Method Room Air BMI result Body Mass Index 23.6 Vital signs have been reviewed as appeared to be correct. Blood pressure normal. Heart rate elevated. Respiration rate normal. Temperature normal. Oxygen saturation normal. Appearance: Alert. Oriented X3. No acute distress. Head: Normal external exam. Normocephalic. Atraumatic. No Luo signs noted. No raccoon eyes noted Eyes: PERRLA. EOMI. Conjunctiva and sclera normal. Eyelids normal. ENT: TM's Normal. Pharynx normal. Uvula midline. Moist mucous membranes. No trismus noted. No drooling noted. No muffled voice noted. Neck: Normal inspection. Neck supple. FROM. No adenopathy. Thyroid Normal. No meningeal signs. No neck mass noted. CVS: Normal heart rate and rhythm. Heart sound normal. No murmurs noted. Pulses normal throughout. Respiratory: No respiratory distress. Painless inspiration. Breath sounds normal. No wheezes/rales/rhonchi noted. Chest nontender. No accessory muscle usage noted or decreased air movement noted. Abdomen: Soft and nontender. Bowel sounds normal in all 4 quadrants. No distention noted. No organomegaly noted. No visible injury noted. Back: No CVA tenderness. Full range of motion noted. Skin: Skin warm and dry. Normal skin color. Normal skin turgor. No rashes/lesions/lacerations noted. Extremities: No lower extremity edema. Extremities exhibit normal range of motion. Extremities nontender. Neuro: Oriented X 3. Cranial nerve exam: II-XII are grossly intact No motor deficit. No sensory deficit. Reflexes normal. Course Course Course Narrative: Unable to verify the dose of methadone from the methadone clinic will give 105 mg today and patient was instructed to follow up with the clinic tomorrow. Discharge Plan Discharge Clinical Impression: Methadone maintenance therapy patient Patient Disposition: Home, Self-Care Instructions: Opioid Use Disorder (ED) Prescriptions: No Action ibuprofen 600 mg tablet 600 mg PO Q6H PRN (Reason: fever or pain) Qty: 30 0RF Referrals: Physician,Unknown J [Primary Care Provider] -
--- NOTE | 2022-10-11 08:50 | HE.PHANOTE ---
Patient brought in empty methadone bottle. Dose confirmed on bottle, methadone 105 mg. Honey Finn, PharmD
[2022-10-11] MEDS: methADONE HCl 20 MG/2 ML ORAL.CONC 105 MG PO (09:03)
== END 2022-10-11 09:38 | disposition home or self-care (01) ==
PROVIDERS: Emergency Provider Emergency Medicine
DX: F11.20 Opioid dependence, uncomplicated (principal)
CPT/HCPCS: 99283

== ENCOUNTER 2022-12-06 09:32 | Emergency (ER) | payer OTHER, SELFPAY ==
[2022-12-06 09:45] VITALS: BP 125/63; PULSE 76; RESP 18; TEMP 36.6; O2SAT 99; BMI 22.9
--- NOTE | 2022-12-06 10:38 | MHC.RECOVRN ---
Message left with [facility] senior maintenance mechanic, Yokasta Rose, to obtain last dose information. Awaiting return call.
--- NOTE | 2022-12-06 11:53 | MHC.RECOVRN ---
Met with pt in [facility]. Pt has take home bottles with him dated 11/30-12/05, 105 mg. Pt presented to the [facility] today but they are closed for the holiday. Still awaiting call from Yokasta Rose. Provider aware.
--- NOTE | 2022-12-06 11:53 | ED.GENADULT ---
HPI - General Adult General Chief complaint: General Medical Stated complaint: Needs methadone dose Time Seen by Provider: 12/06/22 11:23 History of Present Illness HPI narrative: Patient presents hoping to get his methadone dose as his clinic was closed today, he does have his bottles which are dated which shows his last dose was yesterday of 105 mg of methadone he denies any street drug use no prescription pain meds, no complaint of any injury or illness, only issue is 1 day of his methadone as clinic is closed Related Data Previous Rx's Medication Instructions Recorded ibuprofen 600 mg tablet 600 mg PO Q6H PRN fever or pain 09/30/22 #30 tabs Allergies Allergy/AdvReac Type Severity Reaction Status Date / Time No Known Allergies Allergy Verified 12/06/22 09:48 PMFSH Past Medical History Source: nursing notes reviewed Social History Social History Advance Directives: No Advance Directives Information Provided: No Physical Exam ED Vital Signs: Vital Signs - 24 hr 12/06/22 09:45 Temperature 97.9 F Pulse Rate 76 Respiratory Rate 18 Blood Pressure 125/63 Pulse Oximetry 99 Oxygen Delivery Method Room Air BMI result Body Mass Index 22.9 General appearance no distress, cooperative Head is no cephalic atraumatic Neck is supple Respiratory no distress Chest clear to auscultation bilateral Heart no murmur Abdomen soft nontender Extremities pharyngeal motion x4 Neuro no focal deficits Course Course Course Narrative: Social work tried to contact his clinic but they could not be reached, patient had a very plausible story, he did bring his bottles which confirmed the dose and he is given his dose of methadone Medications Administered Discontinued Medications Generic Name Dose Route Start Last Admin Trade Name Freq PRN Reason Stop Dose Admin Methadone HCl 105 mg 12/06/22 12:52 12/06/22 13:25 Methadone Hcl 20 Mg/2 Ml Oral.Conc PO 12/06/22 12:53 105 mg ONCE ONE Administration Discharge Plan Discharge Clinical Impression: Medication refill Patient Disposition: Home, Self-Care Additional Instructions: We give a 1 time dose of her methadone 105 mg, follow with clinic for further doses Return any concerns Prescriptions: No Action ibuprofen 600 mg tablet 600 mg PO Q6H PRN (Reason: fever or pain) Qty: 30 0RF Interventions: ED Discharge Assessment Last Done: 12/06/22 13:33 Discharge Date/Time: 12/06/22 13:33
--- NOTE | 2022-12-06 12:35 | PC.NURSE ---
pt stated to security that he no longer wishes to wait for provider- per care team they have been unable to verify dose. provider aware
[2022-12-06] MEDS: methADONE HCl 20 MG/2 ML ORAL.CONC 105 MG PO (13:25)
== END 2022-12-06 13:33 | disposition home or self-care (01) ==
PROVIDERS: Emergency Provider Emergency Medicine
DX: Z76.0 Encounter for issue of repeat prescription (principal); Z79.899 Other long term (current) drug therapy
CPT/HCPCS: 99282; 99283

== ENCOUNTER 2024-11-29 19:37 | Emergency (ER) | payer OTHER, SELFPAY ==
[2024-11-29 19:48] VITALS: BP 108/74; PULSE 80; RESP 18; TEMP 37.3; O2SAT 99; BMI 22.7
--- NOTE | 2024-11-29 19:50 | ED_ITS ---
HPI - General Adult General Chief complaint: Upper Respiratory Symptoms Stated complaint: sinus infection? sleeping alot Time Seen by Provider: 11/30/24 01:55 Source: patient Mode of arrival: ambulatory Limitations: no limitations History of Present Illness ED Provider: Dr. Jeannette Zhao HPI narrative: Patient comes to the emergency room complaining of a sore throat for 2 days. Complaining of body aches, headache, denies cough or shortness of breath. No chest pain. Related Data Previous Rx's ?Medication ?Instructions ?Recorded ibuprofen 600 mg tablet 600 mg PO Q6H PRN fever or pain 09/30/22 #30 tabs amoxicillin 500 mg-potassium 1 tab PO TID 10 days #30 tabs 11/30/24 clavulanate 125 mg tablet (Augmentin) ibuprofen 600 mg tablet 600 mg PO Q8H PRN fever or pain 11/30/24 #20 tabs Allergies Allergy/AdvReac Type Severity Reaction Status Date / Time No Known Allergies Allergy Verified 11/29/24 19:50 Review of Systems Review of Systems: Constitutional : No Weight loss, No Fever, No Chills, No Night Sweats, No Fatigue, No Malaise ENT/Mouth : No Hearing loss, No Ear Pain, No Nasal Congestion, No Sinus Pain, No Hoarseness, complaining of sore throat, No Rhinorrhea, No Swallowing Difficulty Eyes: No Eye Pain, No Swelling, No Redness, No Foreign Body, No Discharge, No Vision Changes Cardiovascular : No Chest Pain, No SOB, No Dyspnea on Exertion, No Orthopnea, No Edema, No Palpitations Respiratory : No Cough, No Sputum, No Wheezing, No Smoke Exposure, No Dyspnea Gastrointestinal : No Nausea, No Vomiting, No Diarrhea, No Constipation, No abdominal Pain, No Hematochezia, No Melena Genitourinary : no irregular bleeding, No Dysuria, No Urinary Frequency, No Hematuria, No Urinary Incontinence, No Urgency, No Flank Pain, No Urinary Flow Changes, No Hesitancy Musculoskeletal : No joint pain, No Myalgias, No Joint Swelling Skin : No Skin Lesions, No rash Neuro : No Weakness, No Numbness, No Paresthesias, No Loss of Consciousness, No Dizziness, No Headache Psych : No Anxiety/Panic, No Depression, No SI/HI/AH/VH, No Social Issues, Heme/Lymph: No Bruising, No Bleeding,No Lymphadenopathy Endocrine : No Polyuria, No Polydipsia, No Temperature Intolerance [facility] Social History Social History Do you have a plan to hurt others: No Plan Physical Exam ED Vital Signs: Vital Signs - 24 hr 11/29/24 19:48 11/30/24 01:38 Temperature 99.2 F 98.5 F Pulse Rate 80 78 Respiratory Rate 18 16 Blood Pressure 108/74 123/77 Pulse Oximetry 99 100 Oxygen Delivery Method Room Air Room Air BMI result Body Mass Index 22.7 Const Other: Appearance: Alert. Oriented X3. No acute distress. Eyes: Pupils equal, round and reactive to light. ENT: Erythematous oropharynx, no white exudates or visualized abscesses Neck: Normal inspection. Neck supple. No lymph nodes noted. No crepitus CVS: Normal heart rate and rhythm. Pulses normal. Normal S1 and S2 Respiratory: No respiratory distress. Breath sounds normal. No Wheezing. No rales Abdomen: Soft and nontender. No rigidity. No distention. Skin: Skin warm and dry. Normal skin color. Normal skin turgor. Extremities: No lower extremity edema. No Lacerations. No Rash Neuro: Oriented X 3. No motor deficit. No sensory deficit. Moving all extremities. No slurred speech. CN 2 through 12 grossly intact Psych: calm, cooperative, normal affect Course Course Course Narrative: This is a rapid medical exam performed by Yanique Barkley NP: Additional HPI, ROS, PE not included below will be deferred to primary provider. Patient is a 44-year-old male presenting with 2 days of congestion, body aches. Jigneshies ernesto dunham. Plan: viral serology Medical Decision Making Medical Decision Making [facility] Narrative: My interpretation of labs: Patient tested positive for strep Patient was given p.o. Augmentin, Decadron and viscous lidocaine Lab Data [facility] Lab Attestation statement: I reviewed the patient's lab results. Labs: Lab Results 11/29/24 Range/Units 20:24 Influenza Type A (PCR) NEGATIVE (Negative) Influenza Type B (PCR) NEGATIVE (Negative) RSV RNA Qual (PCR) NEGATIVE (Negative) SARS-CoV-2 RNA (RT-PCR) NEGATIVE (Negative) S. pyogenes GrpA ADDY Positive A (Negative) Discharge Plan Discharge Clinical Impression: Acute streptococcal pharyngitis Patient Disposition: Home, Self-Care Instructions: Strep Throat (ED) Additional Instructions: Please follow-up with your primary care physician tomorrow. If you have any worsening or new symptoms, please return to the emergency room or call 911. Your medication was sent to [facility] [address] [place] [address] in [facility] Prescriptions: New amoxicillin-pot clavulanate [Augmentin] 500-125 mg tablet 1 tab PO TID 10 Days Qty: 30 0RF ibuprofen 600 mg tablet 600 mg PO Q8H PRN (Reason: fever or pain) Qty: 20 0RF No Action ibuprofen 600 mg tablet 600 mg PO Q6H PRN (Reason: fever or pain) Qty: 30 0RF Print Language: Telugu
[2024-11-29 20:39] LABS: IDNOW Serial# 58CA691E; Strep A Nucleic Acid Positive (Negative)
[2024-11-29 21:07] LABS: Influenza A PCR NEGATIVE (Negative); Influenza B PCR NEGATIVE (Negative); Resp Syncy Virus RNA Qual PCR NEGATIVE (Negative); SARS COV2 PCR INHOUSE NEGATIVE (Negative)
[2024-11-30 01:38] VITALS: BP 123/77; PULSE 78; RESP 16; TEMP 36.9; O2SAT 100
[2024-11-30] MEDS: dexAMETHasone 4 MG TABLET PO (02:35)
[2024-11-30] MEDS: Amoxicillin/Potassium Clav 500 MG TABLET PO (02:35)
[2024-11-30] MEDS: Lidocaine HCl Viscous 2 % 15 ML SOLUTION MUCOUS MEM (02:35)
[2024-11-30 02:43] VITALS: BP 101/72; PULSE 71; RESP 16; TEMP 37; O2SAT 97
== END 2024-11-30 03:12 | disposition home or self-care (01) ==
PROVIDERS: Registered Nurse Emergency; Emergency Provider Emergency Medicine
DX: J02.0 Streptococcal pharyngitis (principal); M79.10 Myalgia, unspecified site; R06.02 Shortness of breath; R05.9 Cough, unspecified; Z03.818 Encounter for observation for suspected exposure to other biological agents ruled out
CPT/HCPCS: 0241U; 87651; 99283; 99284; J8540